=== PATIENT | female | born 1940 | race Caucasian/White ===

== ENCOUNTER 2018-07-24 14:25 | Emergency (ER) | payer MEDICARE, OTHER ==
[~2018-07-24] VITALS: Ht 154.9 cm; Wt 59.9 kg
[~2018-07-24 14:25] MED LIST: CALC-104 PO; CELE400C PO; FERR325C PO; WARF-78 PO
[2018-07-24 15:37] VITALS: BP 162/76
[2018-07-24] MEDS ORDERED: DIPHTH,PERTUSS(ACELL),TET TOX 0.5 ML DISP.SYRIN. VAX IM ONE (16:30)
--- NOTE | 2018-07-24 17:18 | PHYS DOC ---
Past Medical History Past Medical History: No Pertinent History Past Surgical History: Hysterectomy, Knee Replacement Alcohol Use: None Drug Use: None Adult General Chief Complaint Chief Complaint: LACERATION/AVULSION [facility] HPI Patient is a 77 year old female who presents to the emergency room with complaints of a laceration lateral to her left eyebrow after tripping and falling over a wheelchair ramp [employer] today. She denies any loss of consciousness, headache, nausea, vomiting, back pain, dizziness, or syncope prior to the fall. Patient states that she does not know when her last tetanus shot was. Currently she denies any pain. Review of Systems Review of Systems Constitutional: Denies fever Eyes: Denies change in visual acuity, redness, or eye pain [] HENT: Denies nasal congestion or sore throat [] Cardiovascular: No additional information not addressed in HPI [] GI: Denies nausea, or vomiting Musculoskeletal: Denies back pain or joint pain [] Integument: See history of present illness Neurologic: Denies headache, focal weakness or sensory changes [] Current Medications Current Medications Current Medications Medications (Trade) Dose Ordered Sig/Pam Start Time Stop Time Status Last Admin Dose Admin Diphtheria/ Tetanus/Acell Pertussis (Boostrix) 0.5 ml ONCE ONCE 07/24/18 16:30 07/24/18 16:31 DC 07/24/18 16:54 0.5 ML Allergies Allergies Allergies Coded Allergies Type Severity Reaction Last Updated Verified No Known Drug Allergies 05/24/13 No Physical Exam Physical Exam Constitutional: Well developed, well nourished, no acute distress, non-toxic appearance. [] HENT: Normocephalic, atraumatic, bilateral external ears normal, nose normal. [] Eyes: PERRLA, conjunctiva normal, no discharge. [] Neck: Normal range of motion, no tenderness, no stridor. [] Lungs & Thorax: Respirations even and unlabored, no retractions Skin: Warm, dry, no erythema, no rash; 1 cm laceration noted lateral to the left eyebrow no active bleeding, appears superficial.[] Extremities: No cyanosis, ROM intact, no visible deformities Neurologic: Alert and oriented X 3, normal motor function, normal sensory function, no focal deficits noted. [] Psychologic: Affect normal, judgement normal, mood normal. [] Current Patient Data Vital Signs Vital Signs Date Time Temp Pulse Resp B/P (MAP) Pulse Ox O2 Delivery O2 Flow Rate FiO2 07/24/18 15:37 97.7 100 18 162/76 (104) 100 Room Air 97.7 EKG EKG [] Radiology/Procedures Radiology/Procedures PROCEDURE: CT HEAD AND CERVICAL SPINE WO CT head without contrast. CT cervical spine without contrast. CT orbits without contrast. TECHNIQUE: Noncontrast imaging of the head, cervical spine and orbits with multiplanar reconstructions was acquired. HISTORY: Fall, left facial contusions and swelling. CT head findings: Mild generalized brain atrophy. No intracranial hemorrhage, mass, hydrocephalus, or infarction. Imaged orbits, paranasal sinuses, mastoids and bones are unremarkable. IMPRESSION: No acute intracranial CT abnormality. CT cervical spine findings: Craniocervical junction intact. 1 mm anterolisthesis C2 on C3 associated with facet arthritis with spurring. Cervical vertebral body height and alignment intact. No fracture of the cervical spine. Multilevel cervical disc height loss, disc osteophytes and uncovertebral and facet spurs with spinal canal and neural foraminal stenoses. Multiple thyroid nodules which or large and at the left lobe extends into the upper mediastinum the largest measurable nodule measuring 6 cm on the left. Lung apices unremarkable. IMPRESSION: 1. No acute osseous injury of the cervical spine. 2. Cervical disc disease as described above. 3. Enlarged multinodular thyroid goiter with the dominant 6 cm solid nodule of the left lobe extending into the upper mediastinum. Neoplasia is not excluded. CT orbits findings: Mild chronic appearing rightward deviation of the bony nasal septum. Nasal turbinates unremarkable. The bony orbits are intact without evidence of a fracture. Imaged paranasal sinuses are well aerated. No orbital edema or hematoma. There is mild left lateral and inferior periorbital soft tissue edema and swelling. No hematoma. IMPRESSION: Bony orbits intact. Mild left lateral and inferior periorbital soft tissue edema and swelling likely contusion. No hematoma. Laceration to left side of face near lateral left eyebrow was cleansed with surgical scrub and NS. Dermabond tissue adhesive was used to close the laceration. Pt tolerated procedure well, no complications. [] Course & Med Decision Making Course & Med Decision Making Pertinent Labs and Imaging studies reviewed. (See chart for details) [] Dragon Disclaimer Dragon Disclaimer This electronic medical record was generated, in whole or in part, using a voice recognition dictation system. Departure Departure Impression: Primary Impression: Fall (on)(from) sidewalk curb, initial encounter Additional Impressions: Superficial laceration of face Contusion, eye, left Thyroid goiter Head injury without concussion or intracranial hemorrhage Need for Tdap vaccination Disposition: HOME, SELF-CARE Condition: STABLE Referrals: APRIL PAYTON MD (PCP) Patient Instructions: Facial or Scalp Contusion, [id number], Head Injury, Adult, [id number], Tissue Adhesive Wound Care, [id number], VIS, Tetanus, Diphtheria (Td); Tetanus, Diphtheria, Pertussis (Tdap) - [facility] Additional Instructions: Tylenol or ibuprofen as needed for pain. Apply ice packs to sore areas as needed for comfort. Follow up with your primary care doctor for further evaluation of thyroid abnormality on CT scan, return to the ER if symptoms worsen. Problem Qualifiers Additional Impressions: Contusion, eye, left Encounter type: initial encounter Qualified Codes: S05.12XA - Contusion of eyeball and orbital tissues, left eye, initial encounter Head injury without concussion or intracranial hemorrhage Encounter type: initial encounter Qualified Codes: S09.90XA - Unspecified injury of head, initial encounter NATHALIE FLETCHER APRN Jul 24, 2018 17:18
--- NOTE | 2018-07-24 18:32 | RAD ---
CT head without contrast. CT cervical spine without contrast. CT orbits without contrast. TECHNIQUE: Noncontrast imaging of the head, cervical spine and orbits with multiplanar reconstructions was acquired. HISTORY: Fall, left facial contusions and swelling. CT head findings: Mild generalized brain atrophy. No intracranial hemorrhage, mass, hydrocephalus, or infarction. Imaged orbits, paranasal sinuses, mastoids and bones are unremarkable. IMPRESSION: No acute intracranial CT abnormality. CT cervical spine findings: Craniocervical junction intact. 1 mm anterolisthesis C2 on C3 associated with facet arthritis with spurring. Cervical vertebral body height and alignment intact. No fracture of the cervical spine. Multilevel cervical disc height loss, disc osteophytes and uncovertebral and facet spurs with spinal canal and neural foraminal stenoses. Multiple thyroid nodules which or large and at the left lobe extends into the upper mediastinum the largest measurable nodule measuring 6 cm on the left. Lung apices unremarkable. IMPRESSION: 1. No acute osseous injury of the cervical spine. 2. Cervical disc disease as described above. 3. Enlarged multinodular thyroid goiter with the dominant 6 cm solid nodule of the left lobe extending into the upper mediastinum. Neoplasia is not excluded. CT orbits findings: Mild chronic appearing rightward deviation of the bony nasal septum. Nasal turbinates unremarkable. The bony orbits are intact without evidence of a fracture. Imaged paranasal sinuses are well aerated. No orbital edema or hematoma. There is mild left lateral and inferior periorbital soft tissue edema and swelling. No hematoma. IMPRESSION: Bony orbits intact. Mild left lateral and inferior periorbital soft tissue edema and swelling likely contusion. No hematoma. Exposure: One or more of the following individualized dose reduction techniques were utilized for this examination: 1. Automated exposure control 2. Adjustment of the mA and/or kV according to patient size 3. Use of iterative reconstruction technique Electronically signed by: Dc Ma MD (07/24/2018 6:29 PM) [id number]
== END 2018-07-24 19:00 | disposition home or self-care (01) ==
LOC: ER 14:25
DX: S01.112A Laceration without foreign body of left eyelid and periocular area, initial encounter (principal); E04.9 Nontoxic goiter, unspecified; Z90.710 Acquired absence of both cervix and uterus; Z96.659 Presence of unspecified artificial knee joint; W01.198A Fall on same level from slipping, tripping and stumbling with subsequent striking against other object, initial encounter; Y93.89 Activity, other specified; Y92.89 Other specified places as the place of occurrence of the external cause; Y99.8 Other external cause status
CPT/HCPCS: 12011; 70450; 70480; 72125; 90471; 90715; 99284

== ENCOUNTER 2021-03-24 06:46 | Day surgery (SDC) | payer MEDICARE ==
[~2021-03-24] VITALS: Ht 152.4 cm; Wt 56.6 kg
[~2021-03-24 06:46] MED LIST changes: +HYDROmorphone 2 MG/ML VIAL IVP PRN; +IV RINGERS,LACTATED 1000ML 1,000 ML IV SCH; +MORPHINE SULFATE 2 MG/ML INJ. IVP PRN; +PROCHLORPERAZINE 10 MG/2 ML VIAL. IVP PRN; -WARF-78 PO; +WARF5TAB2 PO; +fentaNYL PF VIAL 100 MCG/2 ML VIAL IVP PRN
[2021-03-24 07:28] VITALS: BP 172/78
[2021-03-24] MEDS ORDERED: FAMOTIDINE 20 MG/2 ML VIAL ONE (08:22)
[2021-03-24] MEDS ORDERED: DEXAMETHASONE SOD PHOS 4 MG/ML VIAL ONE (08:22)
[2021-03-24] MEDS ORDERED: PROPOFOL 10 MG/ML (20ML) VIAL. IV ONE (08:22)
[2021-03-24] MEDS ORDERED: MIDAZOLAM HCL/PF 2 MG/2 ML VIAL. ONE (08:23)
[2021-03-24] MEDS ORDERED: BUPIVACAINE MPF 0.25% 30 ML VIAL. ONE (08:55)
[2021-03-24] MEDS ORDERED: TRAM50TA PO (09:14)
--- NOTE | 2021-03-24 09:16 | DISCH ---
DISCHARGE INSTRUCTIONS Condition on Discharge Condition on Discharge: Stable Activity After Discharge Activity Instructions for Disc: Activity as tolerated, Avoid exertion Bathing Instructions: Shower-keep dressing dry Lifting Instructions after Dis: Do not lift >10 pounds Driving Instructions after Dis: Do not drive today Weight Bearing Status after Di: No restrictions Wound Incision Care Other wound/incision instructi: May change dressings postoperative day #3 Follow-Up Follow up with: for dressing change or 10 to 14 days MYLENE CAMPBELL Jr. DO Mar 24, 2021 09:16
--- NOTE | 2021-03-24 09:33 | PDOC4 ---
OPERATIVE NOTE Date: Date: Mar 24, 2021 Pre-Op Diagnosis: Carpal tunnel syndrome chronic left Post-Op Diagnosis: Same Procedure Performed: Carpal tunnel release left Surgeon: Tonio Anesthesia Type: General Blood Loss: 5 cc Specimans Obtained: None Findings: See dictation Complications: None MYLENE CAMPBELL Jr., DO Mar 24, 2021 09:33
[2021-03-24 10:09] VITALS: BP 113/61
--- NOTE | 2021-03-24 11:13 | OP ---
DATE OF SURGERY: 03/24/2021 PREOPERATIVE DIAGNOSIS: Carpal tunnel syndrome, chronic left. POSTOPERATIVE DIAGNOSIS: Carpal tunnel syndrome, chronic left. PROCEDURE: Left carpal tunnel release. SURGEON: Aaron Elizalde MD. TELEGRAPH DISPATCHER: Janes Conway MD. TYPE OF ANESTHESIA: General. COMPLICATIONS: None. ESTIMATED BLOOD LOSS: 5 mL. Standard dictation for financial assistance advisor. DESCRIPTION OF PROCEDURE: The patient was taken to the operative suite, given a general anesthetic. Left upper extremity was then prepped and draped in a sterile fashion. Incision was made through skin and subcutaneous tissues through to the palmar fascia, which was also incised in line with the skin incision. The transverse carpal ligament was then easily identified and the release was completed at this point. The underlying nerve was noted to be completely intact and also completely released. The wound was then thoroughly irrigated and the wound was then reapproximated in an interrupted fashion using 3-0 nylon. Local was placed within the depths of the wound. Sterile dressing was applied. Tourniquet was deflated with good return of pulses and capillary refill. The patient was then taken from the operative bed to the postoperative bed, taken to the PACU in stable condition. ZACHARIAH DR: Cyndi TID: [id number]
== END 2021-03-24 10:40 | disposition home or self-care (01) ==
LOC: SURG 06:46
PROVIDERS: ATTEND Orthopaedic Surgery
DX: G56.02 Carpal tunnel syndrome, left upper limb (principal); M19.90 Unspecified osteoarthritis, unspecified site; Z90.710 Acquired absence of both cervix and uterus; Z98.890 Other specified postprocedural states; Z79.899 Other long term (current) drug therapy
CPT/HCPCS: 64721; A4209; A4930; J0690; J1100; J2250; J2704; J3490; A4657; A6452